=== PATIENT | male | born 1960 | race African-American/Black ===

== ENCOUNTER 2017-02-28 12:49 | Observation (INO) ==
[2017-02-28] MEDS ORDERED: ASPIRIN PO STA (12:59)
[2017-02-28] MEDS ORDERED: CARDIZEM IV ONE ×2 (13:00→13:27)
[2017-02-28] MEDS ORDERED: CARDIZEM ONE (13:05)
[2017-02-28] MEDS ORDERED: CARDIZEM 100 MG/NS 100 MG/100 ML IVPB ONE (13:12)
[2017-02-28 13:16] LABS: MANUAL DIFF NEEDED? NO
[2017-02-28 13:20] LABS: BASO% 0.2 % (0.0-0.8); EOS# 0.18 X1000 (0.0-0.7); EOS% 1.8 % (0.0-10.0); HEMATOCRIT 40.5 % (42.0-52.0); HEMOGLOBIN 14.7 g/dL (14.0-18.0); IMM GRAN# 0.01 X1000 (0.0-0.04); IMM GRAN% 0.1 % (0.0-0.5); LYMPH# 4.43 X1000 (1.2-3.4); LYMPH% 45.4 % (20.5-51.1); MCHC 36.3 g/dL (33-37); MCV 82.7 FL (81-99); MONO# 0.82 X1000 (0.11-0.59); MONO% 8.4 % (1.7-9.3); MPV 9.8 FL (7.4-10.4); NEUT% 44.1 % (42.2-75.2); PLT 357 X1000 (130-400)
[2017-02-28] MEDS: CARDIZEM 100 MG/NS 100 MG/100 ML IVPB IV SCH ×2 (13:20→16:24)
[2017-02-28 13:37] LABS: INR 1.08 (0.86-1.15); PROTIME 14.3 Seconds (12.1-15.5); PTT PL 32.4 Seconds (22.6-43.9)
[2017-02-28 13:40] LABS: AGAP 17; ALBUMIN 4.4 g/dL (3.5-5.0); ALKALINE PHOSPHATASE 71 U/L (32-122); BUN 14 mg/dL (8-22); CALCIUM 9.8 mg/dL (8.8-10.2); CHLORIDE 101 mmol/L (98-107); CK PROFILE 117 U/L (24-204); COSMO 277; GOT 21 U/L (10-34); GPT 17 U/L (10-44); POTASSIUM 3.7 mmol/L (3.5-5.1); SODIUM 137 mmol/L (136-145); TCO2 19 mmol/L (25-35); TOTAL PROTEIN 8.3 g/dL (6.3-8.3)
--- NOTE | 2017-02-28 13:42 | EKG Report ---
Test Performed on : 02/28/2017 1:04:03 PM Test Reason : CHEST PAIN Blood Pressure : / mmHG Vent. Rate : 193 BPM Atrial Rate : 136 BPM P-R Int : 000 ms QRS Dur : 074 ms QT Int : 230 ms P-R-T Axes : 000 016 -82 degrees QTc Int : 412 ms Undetermined rhythm Marked ST abnormality, possible inferior subendocardial injury Abnormal ECG When compared with ECG of 27-FEB-2014 10:35, Current undetermined rhythm precludes rhythm comparison, needs review ST now depressed in Inferior leads ST now depressed in Anterolateral leads T wave inversion now evident in Inferior leads Inverted T waves have replaced nonspecific T wave abnormality in Lateral leads Unconfirmed Result
--- NOTE | 2017-02-28 13:43 | Diag Imaging Result Doc PS360 ---
EXAM: CHEST-PORTABLE HISTORY: CP TECHNIQUE: Portable COMPARISON: 05/30/2015 FINDINGS: The lungs are well expanded. Heart is not enlarged. The vessels are not distended. No pneumonia. No pleural effusions identified. IMPRESSION: Negative chest. Electronically signed by Eleazar Watt 02/28/2017 1:41 PM
--- NOTE | 2017-02-28 13:51 | EKG Report ---
Test Performed on : 02/28/2017 1:31:33 PM Test Reason : HIGH HR---POST MEDICINE Blood Pressure : / mmHG Vent. Rate : 141 BPM Atrial Rate : 104 BPM P-R Int : 000 ms QRS Dur : 084 ms QT Int : 306 ms P-R-T Axes : 000 023 -01 degrees QTc Int : 468 ms Undetermined rhythm Nonspecific ST abnormality Abnormal ECG When compared with ECG of 28-FEB-2017 13:04, (Unconfirmed) Current undetermined rhythm precludes rhythm comparison, needs review T wave inversion no longer evident in Inferior leads Nonspecific T wave abnormality has replaced inverted T waves in Lateral leads Unconfirmed Result
--- NOTE | 2017-02-28 14:58 | HISTORY AND PHYSICAL ---
PRIMARY CARE PHYSICIAN: Through the [facility]. CHIEF COMPLAINT: Palpitations. HISTORY OF PRESENT ILLNESS: Mr. Cuevas is a 56-year-old -[place] male with a past medical history of atrial fibrillation, hypertension, hyperlipidemia, prostate cancer, who is on chronic anticoagulation with Eliquis and also on metoprolol for his atrial fibrillation; previously on amiodarone and was changed from that 6-7 months ago when he lost his primary insurance. He presents to the emergency room on date of admission reporting palpitations. He denies any chest pain or additional symptoms. He was found to be in atrial fibrillation with RVR, rate of 140s. He was given 2 doses of Cardizem IV push and then placed on a Cardizem drip and continues in atrial fibrillation with RVR at current time. He will be placed to ICU at [place] for further monitoring and treatment as well as to continue with his IV drip of Cardizem and have cardiology to evaluate the patient in the morning. PAST MEDICAL HISTORY: 1. Hypertension. 2. Hyperlipidemia. 3. Prostate cancer. 4. Atrial fibrillation. 5. Vitamin D deficiency. 6. Hypomagnesemia. 7. Testosterone deficiency. PAST SURGICAL HISTORY: 1. TURP. 2. Hernia repair. 3. Hemorrhoidectomy. 4. Right orchidectomy. 5. Back surgery. 6. Right knee surgery. 7. Carpal tunnel release. SOCIAL HISTORY: The patient denies any tobacco use. He does report occasional alcohol use and occasional marijuana use. FAMILY HISTORY: Mother from congestive heart failure complications at 56 years old. ALLERGIES: Sulfa and tramadol. MEDICATIONS: 1. Pravastatin 80 mg p.o. at bedtime. 2. Hydrochlorothiazide 25 mg p.o. daily. 3. Vitamin D 50,000 units 1 weekly. 4. Amlodipine 10 mg p.o. daily. 5. Magnesium 600 mg p.o. daily. 6. Megestrol 20 mEq mg p.o. daily. 7. Eliquis 5 mg p.o. b.i.d. 8. Metoprolol 50 mg p.o. daily. REVIEW OF SYSTEMS: Ten-point review of systems negative other than previously stated in HPI. LABORATORIES AND DIAGNOSTICS: CBC: White count 9.75. Hemoglobin and hematocrit 14.7 and 40.5, platelets 357,000. BMP: Sodium 137, potassium 3.7 chloride 101, CO2 of 19. BUN 14, creatinine 1.1, glucose 142. Magnesium 2. LFTs within normal limits. Initial CPK and troponin were negative. BNP 97. Chest x-ray was negative. PHYSICAL EXAMINATION: VITAL SIGNS: Temperature 97.9 degrees, pulse 149, respirations 20, blood pressure 143/79, O2 saturation 100% on room air. HEENT: Normocephalic, atraumatic. Mucous membranes moist. NECK: Supple. No JVD. CHEST: Breath sounds clear. Respirations unlabored. No accessory muscle use noted. CARDIOVASCULAR: Irregular rhythm. Tachycardic rate. Otherwise normal. ABDOMEN: Abdomen is soft, nontender, nondistended. Positive bowel sounds. EXTREMITIES: No evidence of clubbing, cyanosis, or edema. NEUROLOGIC: Patient is alert and oriented x4. No neurological deficits noted. ASSESSMENT AND PLAN: 1. Atrial fibrillation with rapid ventricular response. We will admit patient to ICU with Cardizem drip and cardiology consult for tomorrow. We will perform serial cardiac enzymes and the patient is on chronic anticoagulation with Eliquis. 2. Hypertension. We will hold medications right now while Cardizem, but we will continue if needed. 3. Hyperlipidemia. We will continue statin. 4. History of prostate cancer. Patient in remission. Aware of previous diagnosis. Further orders pending physician evaluation. Dictated by JEANETTE Cotto for Eliecer Parks MD cc: JEANETTE Cotto MD
[2017-02-28] MEDS ORDERED: ZOFRAN IV PRN (15:13)
[2017-02-28] MEDS: ELIQUIS PO SCH (20:02)
[2017-02-28] MEDS: PRAVACHOL PO SCH (20:02)
[2017-03-01 06:25] LABS: MANUAL DIFF NEEDED? NO
[2017-03-01] MEDS: CARDIZEM 100 MG/NS 100 MG/100 ML IVPB IV SCH (06:27)
[2017-03-01 06:40] LABS: BASO% 0.3 % (0.0-0.8); EOS# 0.08 X1000 (0.0-0.7); EOS% 1.1 % (0.0-10.0); HEMATOCRIT 36.4 % (42.0-52.0); HEMOGLOBIN 12.9 g/dL (14.0-18.0); IMM GRAN# 0.01 X1000 (0.0-0.04); IMM GRAN% 0.1 % (0.0-0.5); LYMPH# 2.71 X1000 (1.2-3.4); LYMPH% 36.1 % (20.5-51.1); MCH 29.9 PG (27-31); MCHC 35.4 g/dL (33-37); MCV 84.3 FL (81-99); MONO# 0.64 X1000 (0.11-0.59); MONO% 8.5 % (1.7-9.3); MPV 10.3 FL (7.4-10.4); NEUT% 53.9 % (42.2-75.2); PLT 295 X1000 (130-400); RBC 4.32 XMIL (4.7-6.1)
[2017-03-01 06:59] LABS: AGAP 15; BUN 13 mg/dL (8-22); CALCIUM 9.2 mg/dL (8.8-10.2); CHLORIDE 104 mmol/L (98-107); COSMO 274; SODIUM 137 mmol/L (136-145); TCO2 19 mmol/L (25-35)
[2017-03-01] MEDS ORDERED: KLOR-CON PO ONE (07:38)
[2017-03-01] MEDS: ELIQUIS PO SCH ×3 (07:53→19:47)
--- NOTE | 2017-03-01 08:47 | PROGRESS NOTE ---
DATE: 03/01/2017 SUBJECTIVE: This patient states that he is feeling much better. He is not complaining of chest pain or shortness of breath. No nausea, no vomiting, no diarrhea, no constipation. OBJECTIVE: Vital Signs: Temperature 97.7 degrees, pulse 102, respiratory rate 15, blood pressure 111/72, oxygen saturation 98 on room air. HEENT: Head normocephalic. No trauma. PERRLA. Neck: Supple. No JVD. No masses. Central trachea. Chest: Clear to auscultation. No wheezing. No rales. Cardiovascular: Irregularly irregular rate and rhythm. Abdomen: Soft, nontender, nondistended. No hepatosplenomegaly. Extremities: No edema. No clubbing. No cyanosis. Neurological Examination: The patient is alert and oriented x3. No focal neurological deficits. Laboratory: WBC 7.5, hemoglobin 12.9, hematocrit 36.4, platelets 295,000. Sodium 137, potassium 3, chloride 104, bicarbonate 19, BUN 13, creatinine 0.8, glucose 105, calcium 9.2. Troponins negative x3. ASSESSMENT AND PLAN: 1. Atrial fibrillation with rapid ventricular response. This patient was admitted to the ICU. He is still on a Cardizem drip and anticoagulation. Cardiology has been consulted for tomorrow. Cardiac enzymes have been negative. No complaints at this time. 2. Hypertension. Blood pressure is stable. Continue with the same management. 3. Hyperlipidemia. Continue with statin. 4. History of prostate cancer. Patient in remission. CRITICAL CARE TIME: 35 minutes. cc: Eliecer Parks MD
--- NOTE | 2017-03-01 10:45 | EKG Report ---
Test Performed on : 03/01/2017 06:42:31 AM Test Reason : rhythm change Blood Pressure : / mmHG Vent. Rate : 069 BPM Atrial Rate : 069 BPM P-R Int : 138 ms QRS Dur : 084 ms QT Int : 440 ms P-R-T Axes : 051 004 004 degrees QTc Int : 471 ms Sinus rhythm. with occasional premature ventricular complexes. Otherwise normal ECG When compared with ECG of 28-FEB-2017 13:31, (Unconfirmed) Previous ECG has undetermined rhythm, needs review ST no longer depressed in Inferior leads ST no longer depressed in Anterolateral leads Unconfirmed Result
[2017-03-01] MEDS ORDERED: AMBIEN PO PRN (17:57)
--- NOTE | 2017-03-01 19:12 | CONSULTATION ---
DATE OF CONSULTATION: 03/01/2017 IMPRESSION: 1. Paroxysmal atrial fibrillation. Patient admitted with episode of atrial fibrillation with rapid ventricular rate despite metoprolol. Patient has spontaneously converted back to sinus rhythm. 2. Hypertension. 3. Hyperlipidemia. 4. History of prostate cancer and previous prostatectomy. RECOMMENDATIONS: 1. Echocardiography. 2. Continue Eliquis for anticoagulation. 3. If left ventricular ejection fraction normal, would initiate antiarrhythmic therapy. The patient relates history of previous negative stress test last year and expresses a strong desire to be discharged today. Therefore it would be reasonable to start him on Rythmol 150 mg p.o. t.i.d. if his left ventricular ejection fraction is normal. HISTORY: This 56-year-old -[place] male past history of hypertension, atrial fibrillation, hyperlipidemia, and prostate cancer was admitted to the emergency room yesterday evening for management of atrial fibrillation, rapid ventricular rate. He had onset of tachy palpitations with mild lightheadedness about 30 minutes prior to presenting to the emergency room. He was found to be in atrial fibrillation with rapid ventricular rate and was started on intravenous Cardizem and admitted to the intensive care unit overnight. In the interim he has converted back to sinus rhythm. He relates prior episode of atrial fibrillation in 2012. He has been on rate control anticoagulation with low-dose beta-heather and Eliquis. He relates over the last month he has had several brief less intense episodes of tachy palpitations. Episode he had yesterday was more prominent and persisted prompting him to come in for evaluation. He has no history of coronary disease nor angina. He relates having a stress test at the [facility] last year which was a nuclear study and was negative. He does not smoke or use alcohol. PAST MEDICAL HISTORY: 1. Hypertension. 2. Paroxysmal atrial fibrillation. 3. Hyperlipidemia. 4. Prostate cancer. 5. Vitamin D deficiency. 6. Hypomagnesemia. 7. Testosterone deficiency. PAST SURGICAL HISTORY: Includes prostatectomy, hernia repair, hemorrhoidectomy, right orchiectomy, unspecified back surgery, right knee arthroscopic procedure and carpal tunnel release. ALLERGIES: Allergic or intolerant to sulfa and tramadol. MEDICATIONS: Prior to admission as listed. SOCIAL HISTORY: He does not smoke or use alcohol. He may occasionally use marijuana. FAMILY HISTORY: Negative for premature coronary disease. REVIEW OF SYSTEMS: Pulmonary: Negative. Gastrointestinal: Negative. Constitutional: Negative. Remainder review of systems negative/noncontributory with 14 total systems reviewed. PHYSICAL EXAMINATION: General: This is a pleasant middle-aged -[place] male in no distress. Vital Signs: As recorded are stable. HEENT: Extraocular movements intact. Mucous membranes are moist. Neck: Supple without jugular venous distention. There are no carotid bruits. Chest: Clear to auscultation. Cardiac Exam: Reveals a regular rate and rhythm without appreciable murmur or gallop. Abdomen: Soft, nontender. Bowel sounds are normal. Extremities: Without edema. Neurologic Exam: Reveals him to be alert, fully oriented. Speech is fluent. Moves all 4 extremities equally well. Skin: Warm, dry. Psychiatric: Reveals mood to be appropriate. DIAGNOSTIC DATA: ECG on presentation demonstrates atrial fibrillation with rapid ventricular rate and diffuse nonspecific ST and T-wave abnormality probably rate related. Twelve lead EKG this morning demonstrates sinus rhythm with occasional PVC. cc: Duncan Mckeon MD
[2017-03-01] MEDS ORDERED: PRILOSEC PO PRN (19:20)
[2017-03-01] MEDS ORDERED: PRINIVIL PO ONE (19:35)
[2017-03-01] MEDS: PRAVACHOL PO SCH (19:48)
[2017-03-01 20:58] VITALS: BP 119/83
[2017-03-01] MEDS ORDERED: TOPROL XL PO SCH (21:00)
--- NOTE | 2017-03-01 21:33 | ECHO REPORT ---
ORDER DATE: 03/01/2017 MEASUREMENTS: Left ventricular end-diastolic diameter 5.7, end systolic diameter 4, posterior wall 1.1, septal thickness 1, left atrium 3.6, aortic root 3.8. SUMMARY: 1. Adequate quality study. 2. Aortic valve is trileaflet and opens normally on 2-dimensional images. Mitral, tricuspid, and pulmonic valves are without structural abnormality with trace mitral regurgitation, trace tricuspid regurgitation, and mild pulmonic insufficiency. The aortic root is borderline enlarged. 3. Borderline left ventricular enlargement with normal wall thickness suggested. Estimated left ventricular ejection fraction approximately 35% to 40% in setting of global hypokinesis. There is false tendon traversing left ventricular apex. Doppler suggests grade 1 left ventricular diastolic dysfunction. Left atrium, right atrium, right ventricle are normal size with normal right ventricular systolic function. 4. No pericardial effusion. 5. Appearance of inferior vena cava suggests normal central venous pressure. SUMMARY: 1. No significant valvular abnormality. 2. Borderline left ventricular enlargement with estimated left ejection fraction 35-40%. 3. Grade 1 left ventricular diastolic dysfunction. cc: Duncan Mckeon MD
[2017-03-02] MEDS ORDERED: PRINIVIL PO SCH (09:00)
[2017-03-02] MEDS ORDERED: ASPIRIN EC PO SCH (09:00)
--- NOTE | 2017-03-08 16:38 | DISCHARGE SUMMARY ---
ADMISSION DATE: 02/28/2017 DISCHARGE DATE: 03/01/2017 DISCHARGE DIAGNOSIS: 1. Atrial fibrillation with rapid ventricular response, resolved. 2. Hypertension. 3. Hyperlipidemia. 4. History of prostate cancer. CONSULTS: Cardiology Department, Dr. Duncan Mckeon. HOSPITAL COURSE: This is a 56-year-old male with a past medical history of atrial fibrillation, hypertension, hyperlipidemia, prostate cancer on chronic anticoagulation with Eliquis, presents to the emergency room complaining of palpitation. He denies any chest pain or additional symptoms. He was found to be in atrial fibrillation with RVR, rate of 140s. He was given 2 doses of Cardizem IV push and then placed on Cardizem drip and continued in A-fib with RVR after that. He was placed in the ICU at [place] for further monitoring and treatment. Cardiology Department was consulted and they evaluated this patient, as well as his echocardiogram that showed no significant valvular abnormality, borderline left ventricular enlargement with estimated left ejection fraction of 35 to 40%, and grade 1 left ventricular diastolic dysfunction. This patient was admitted on 02/28/2017. The next day he was re-evaluated and his A-fib was controlled. After getting suggestions from Cardiology Department we decided to discharge this patient with strict followup by his primary care doctor and also follow up with Dr. Mckeon in 1 week. DISCHARGE MEDICATIONS: Omeprazole 20 mg p.o. daily, hydrochlorothiazide 25 mg p.o. daily, aspirin 81 mg p.o. daily, metoprolol succinate 25 mg p.o. daily, lisinopril 5 mg p.o. daily, and Eliquis 5 mg p.o. daily. PHYSICAL EXAMINATION: Vital Signs: Temperature 98.6 degrees, pulse 89, respiratory rate 23, blood pressure 119/83, oxygen saturation 100% on room air. HEENT: Head normocephalic. No trauma. PERRLA. Neck: Supple. No JVD. No masses. Central trachea. Chest: Clear to auscultation. No wheezing. No rales. Cardiovascular: Irregularly irregular rate and rhythm. Abdomen: Soft, nontender, nondistended. No hepatosplenomegaly. Extremities: No edema. No clubbing. No cyanosis. Neurological: The patient is alert and oriented x3. No focal neurological deficits. LABORATORY: WBC 7.5, hemoglobin 12.9, hematocrit 36.4, platelets 295,000. Sodium 137, potassium 3, chloride 104, bicarbonate 19, BUN 13, creatinine 0.8, glucose 105, calcium 9.2. Troponins negative x3. FOLLOW-UP: Follow up with his primary care doctor in 1 week and follow with Cardiology Department, Dr. Mckeon in 1 week. TIME SPENT: Time discharging this patient 35 minutes. cc: Eliecer Parks MD
--- NOTE | 2017-03-09 22:00 | PROVIDER DOCUMENTATION ---
This chart was entered by Yoselin Gonzales Scribe, acting as scribe for Nicolas Andersen MD. HPI-Cardiac General - General Chief Complaint: Palpitations Stated Complaint: DIZZY AND LIGHTHEADED Time Seen by Provider: 02/28/17 13:08 Source: patient Allergies/Adverse Reactions: Patient Allergies Allergy/AdvReac Type Severity Reaction Status Date / Time Sulfa (Sulfonamide Allergy RASH Verified 03/04/17 13:56 Antibiotics) tramadol Allergy HEADACHE Verified 03/04/17 13:56 Home Medications: Home Medication List Medication Instructions Recorded Confirmed Last Taken Type Omeprazole 1 cap PO PRN PRN 05/23/15 03/04/17 03/04/17 History Apixaban [Eliquis] 5 mg PO DAILY #30 tablet 03/01/17 03/04/17 03/04/17 Rx LISINOpril [Prinivil] 5 mg PO DAILY #30 tablet 03/01/17 03/04/17 03/04/17 Rx Metoprolol Succinate [Toprol Xl] 75 mg PO DAILY #90 tab.er.[id number] 03/01/1703/04/17 Rx Aspirin 81 mg PO DAILY 03/04/17 03/04/17 03/04/17 History Hydrochlorothiazide 25 mg PO DAILY 03/04/17 03/04/17 Unknown History - History of Present Illness-Cardiac Nature of Presenting Problem: 56 yo M presents to the ER with complaint of palpitations and SOB, onset 30 min [employer]. Pt states he has a hx of a-fib. States he has recently had an echo and wore a Holter moniter, just took it off a couple days ago, has not got the results yet. Denies any pain, just rapid HR. Palpitation Quality: fast/pounding heart beat History of arrythmia: reports: A-Fib Recent use of:: reports: no stimulants Nitro Today/Relief: reports: no nitro taken today Aspirin Treatment Today: reports: no aspirin today Prior Chest Pain/Cardiac Workup: reports: echocardiography, other (holter monitor) Associated Symptoms: reports: shortness of breath Review of Systems - Adult - REVIEW OF SYSTEMS - ADULT Constitutional: denies: chills, fever Eyes: reports: no symptoms reported Ears, Nose, Mouth & Throat: reports: no symptoms reported Cardiovascular: reports: irregular heart rate, palpitations. denies: chest pain Respiratory: reports: shortness of breath. denies: cough, wheezing Gastrointestinal: denies: abdominal pain, diarrhea, nausea, vomiting Genitourinary: reports: no symptoms reported Musculoskeletal: reports: no symptoms reported Integumentary: reports: no symptoms reported Neurological: reports: dizziness/vertigo. denies: headache/migraines Psychiatric: reports: no symptoms reported Endocrine: reports: no symptoms reported Hematologic/Lymphatic: reports: no symptoms reported Allergic/Immunologic: reports: no symptoms reported All Other Systems: Reviewed and Negative Past History - Adult - PAST MEDICAL HISTORY-ADULT Review of Records: reports: Nursing Assessment Review, Medications Reviewed Cardiovascular: reports: A-Fib, HTN, hyperlipidemia Genitourinary: reports: prostate cancer (past) Musculoskeletal: reports: chronic pain - PRIOR SURGERIES/PROCEDURES Surgical/Procedure History: reports: hernia repair, orthopedic (extremity), other - PRIOR HOSPITALIZATIONS Prior Hospitalizations: reports: none - IMMUNIZATION STATUS Childhood Immunizations: See Nurse Assessment Flu Vaccine: See Nurse Assessment Physical Exam-General - PHYSICAL EXAM-ADULT Initial Vital Signs Reviewed: Yes - CONSTITUTIONAL General Appearance: alert, no apparent distress - EYES Eyes: PERRL/EOMI, pink conjunctivae - HEAD, EARS, NOSE, MOUTH & THROAT HENMT: normocephalic/atraumatic, normal ENT inspection - NECK Neck: supple, normal inspection - RESPIRATORY Respiratory: no respiratory distress, no accessory muscle use - CARDIOVASCULAR Cardiovascular: normal peripheral pulses, no edema, tachycardia - GASTROINTESTINAL (ABDOMEN) Abdominal Exam: normal bowel sounds, non tender, soft - MUSCULOSKELETAL Back Exam: no CVA tenderness, no vertebral tenderness Extremity: normal gait, normal inspection - SKIN Integumentary: normal color, warm/dry - NEUROLOGIC Neurologic: grossly normal, no motor/sensory deficits - PSYCHIATRIC Psych/Mental Status: normal mood/affect, normal thought content, normal thought process, oriented x 3 Progress - PLAN OF CARE/RESULTS Progress/Plan/Lab Results: Orders Category Date Time Status Admit - [facility] Routine [id number] 02/28/17 14:18 Ordered Cardiac Monitoring DIRECTED Care 02/28/17 12:59 Completed Nursing- MD Consult Request ROUTINE Care 02/28/17 15:13 Completed Saline Loc NOW Care 02/28/17 12:59 Completed MD [Physician/Provider Consults] Routine Cons 03/01/17 06:00 Ordered Heart Healthy Diet Diet 07/08/17 14:20 Completed CHEST-PORTABLE [RAD] Stat Exams 02/28/17 12:59 Completed BMP [BASIC METABOLIC PANEL] [CHEM] Routine Lab 03/01/17 04:20 Completed CBC WITH DIFF [HEME] Routine Lab 03/01/17 04:20 Completed CBC WITH ELECTRONIC DIFF [HEME] Stat Lab 02/28/17 13:07 Completed CK PROFILE [SP CHEM] Stat Lab 02/28/17 13:07 Completed COMPREHENSIVE METABOLIC PANEL [CHEM] Stat Lab 02/28/17 13:07 Completed Cardiac Profile [CK PROFILE] [SP CHEM] Q8HR Lab 02/28/17 21:10 Completed Cardiac Profile [CK PROFILE] [SP CHEM] Q8HR Lab 03/01/17 04:20 Completed MAGNESIUM [CHEM] Stat Lab 02/28/17 13:07 Completed PRO B-NATRIURETIC PEPTIDE Stat Lab 02/28/17 13:07 Completed [address]IME WITH INR PL [COAG] Stat Lab 02/28/17 13:[address] [COAG] Stat Lab 02/28/17 13:07 Completed TROPONIN T Q8HR Lab 02/28/17 21:10 Completed TROPONIN T Q8HR Lab 03/01/17 04:20 Completed TROPONIN T Q8HR Lab 03/01/17 13:15 Completed TROPONIN T Stat Lab 02/28/17 13:07 Completed TSH Routine Lab 02/28/17 13:07 Completed Apixaban [Eliquis] Med 02/28/17 21:00 Discontinued 5 mg PO BID Aspirin Med 02/28/17 12:59 Discontinued 325 mg PO STAT STA Diltiazem 100 mg/Ns [Cardizem 100 mg/Ns] Med 02/28/17 13:12 Discontinued 100 mg in 100 ml .ROUTE As Directed Diltiazem 100 mg/Ns [Cardizem 100 mg/Ns] Med 02/28/17 13:20 Discontinued 100 mg in 100 ml IV Per Protocol Diltiazem [Cardizem] Med 02/28/17 13:27 Discontinued 10 mg IV NOW ONE Diltiazem [Cardizem] Med 02/28/17 13:00 Discontinued 15 mg IV NOW ONE Diltiazem [Cardizem] Med 02/28/17 13:05 Discontinued 25 mg .ROUTE .STK-MED ONE PRAVAstatin [Pravachol] Med 02/28/17 21:00 Discontinued 80 mg PO QHS EKG [EKG] Stat Ther 02/28/17 12:59 Draft EKG [EKG] Stat Ther 02/28/17 13:31 Draft Transfer/Admit Order [TRANSFER] Routine Transfer 02/28/17 14:19 Completed Result Diagrams: 03/01/17 04:20 03/01/17 04:20 - EKG 1 Time of EKG reading by physician:: 16:04 EKG Read and Signed by:: Nicolas Andersen EKG Interpretation (*Must complete 3 of following elements*): Abnormal Rate: 193 Rhythm: rapid a-fib [place]: normal QRS: PVC's MO Interval: normal ST Wave: non-specific ST changes 2 Time of EKG reading by physician:: 01:41 EKG Read and Signed by:: Nicolas Andersen EKG Interpretation (*Must complete 3 of following elements*): Abnormal Rate: 141 Rhythm: A-fib with RVR [place]: normal QRS: PVC's [place] Interval: normal ST Wave: non-specific ST changes - XRAY 1 XRAY Study: Chest Impression: Normal (negative chest, per radiologist) - CONSULTS/PCP/HOSPITALIST Notification #1 *Consult/PCP/Hospitalist*: Dr. Aguayo Time Discussed: 13:57 Consult Disposition: Admit Departure - Departure Date of Disposition Decision: 02/28/17 Time of Disposition Decision: 13:31 DIAGNOSIS: A-fib Qualifiers: Atrial fibrillation type: unspecified Qualified Code(s): I48.91 - Unspecified atrial fibrillation Hypertension Qualifiers: Hypertension type: unspecified Qualified Code(s): I10 - Essential (primary) hypertension Disposition: ADMITTED INPATIENT 09 Certified Medical Emergency: Emergent Condition: Stable - Critical Care Note This patient required my direct & personal management of CC.: No This chart was documented by the indicated scribe, (Yoselin Gonzales Scribe) and accurately reflects the services I performed and decisions made by , Nicolas Andersen MD, as attested by the provider's signature.
== END 2017-03-01 20:30 | disposition home or self-care (01) ==
LOC: P.ED 12:49 → INTOOBSV 14:29 → P.ICU 14:29
PROVIDERS: ATTEND Internal Medicine